=== PATIENT | male | born 1995 | race Caucasian/White ===

== ENCOUNTER → 2020-12-28 | Outpatient (REF) ==
--- NOTE | 2020-12-28 11:15 | Diagnostic Imaging Report ---
History: Smash injury to the right thumb TECHNIQUE: 3 views of the right thumb including frontal view of the right hand. COMPARISON: None FINDINGS: No acute fracture or dislocation is seen in the right thumb. Alignment is normal. Joint spaces are preserved. No radiopaque foreign body is seen. IMPRESSION: 1. No acute osseous abnormalities seen in the right thumb. Dictated by: Dictated on workstation # [id number]
== END ==
LOC: OCC 10:53
PROVIDERS: ATTEND Family Medicine
DX: S69.91XA Unspecified injury of right wrist, hand and finger(s), initial encounter (principal); X58.XXXA Exposure to other specified factors, initial encounter
CPT/HCPCS: 73140